=== PATIENT | male | born 1970 | race Caucasian/White ===

== ENCOUNTER 2024-05-20 09:57 | Emergency (ER) | payer MEDICAID ==
[~2024-05-20] VITALS: Ht 175.3 cm; Wt 75.0 kg
[2024-05-20 09:59] VITALS: TEMP 98.3
[2024-05-20 11:03] LABS: COLLECTION METHOD CLEAN CATCH
[2024-05-20 11:13] LABS: HEMOGLOBIN 15.4 g/dl (13.5-18.0); MEAN CELL VOLUME 96 fl (80.0-100.0); MEAN CORPUSCULAR HEMOGLOBIN 34 pg (27-31); MEAN CORPUSCULAR HGB CONC 35 g/dl (33.0-37.0); MEAN PLATELET VOLUME 10.1 fl (7.4-10.4); PLATELET COUNT 225 K/mm3 (130-400); RED BLOOD COUNT 4.59 M/mm3 (4.20-5.60); REDCELL DISTRIBUTION WIDTH-CV 15.4 % (11.5-14.5)
[2024-05-20 11:15] LABS: PH 5.5 (5.0-8.5); URINE APPEARANCE CLEAR (CLEAR/HAZY); URINE BLOOD NEGATIVE (NEGATIVE); URINE COLOR YELLOW (YELLOW); URINE GLUCOSE NEGATIVE (NEGATIVE); URINE KETONE NEGATIVE (NEGATIVE); URINE NITRATE NEGATIVE (NEGATIVE); URINE PROTEIN(semi-quant) NEGATIVE (NEGATIVE)
[2024-05-20 11:34] LABS: ALANINE AMINOTRANSFERASE 162 U/L (0-55); ALBUMIN 3.8 g/dL (3.5-5.0); ALKALINE PHOSPHATASE 86 U/L (40-150); ANION GAP 15 mmol/L (7-16); AST,SGOT 233 U/L (5-34); BILIRUBIN,TOTAL 0.7 mg/dL (0.2-1.2); BLOOD UREA NITROGEN 6 mg/dL (8-26); CALCIUM 8.9 mg/dL (8.4-10.2); CHLORIDE 108 mEq/L (98-107); CREATININE, serum 0.67 mg/dL (0.72-1.25); GLUCOSE 108 mg/dL (70-99); POTASSIUM 3.8 mEq/L (3.5-4.5); SODIUM 143 mEq/L (136-145); TOTAL PROTEIN 7.8 g/dl (6.2-8.1)
[2024-05-20 11:39] LABS: ALCOHOL(ethanol),MEDICAL 325 mg/dL (0-10)
[2024-05-20 11:41] LABS: TROPONIN-I < 0.010 ng/mL (0.00-0.033)
[2024-05-20 15:32] VITALS: BP 113/79; PULSE 77
--- NOTE | 2024-05-20 16:01 | NUR ---
foot worker was consulted to speak with a patient in the emergency room whom is homeless and intoxicated. SW was notified patient is ready for discharge from the ER. KATHY contacted [facility] whom expressed they have availability at their fpc but patient would need to be sober to be able to stay at the fpc. KATHY and KATHY Student met with patient to discuss this. Patient stated "I want to go to the fpc." SW explained to patient that he will need to be sober. Patient stated he has been here in the ER since last night and he was sober. SW explained to patient that he arrived at 10 AM today. Patient asked what time it was, licensed social worker expressed it was 2:30 pm. Patient stated that since he wasn't sober he wouldn't be able to go to the emergency fpc. SW explained the emergency fpc has their own policies and that is one of their rules. Patient stated he wanted to go to the fpc. SW explained they would need to do a consult, patient stated okay. KATHY contacted [facility] and placed her on speaker phone for patient to speak with them. During the consult, patient stated he has been homeless for 30 years and has been staying in between [facility] and [facility]. Patient stated that a video system repairer brought him to the hospital here. When asked where patient was staying last night, patient stated he was staying on the street under an umbrella last night because it was raining. Patient stated he has no one here to stay with. When discussing mental health disorders, patient reported he has schizoaffective disorder. The outside medical sales representative stated patient would have a bed available there and they would hold it for 24 hours but she stated it sounds as though the patient is intoxicated. Patient stated "I have no teeth, that is why I sound like this." The outside medical sales representative at the fpc stated she understood but he will have to blow a breathlizer and it would need show zero. Patient then stated "I have a bit of a buzz," the outside medical sales representative stated he would not be allowed to stay the evening. Patient asked if he could remain in the hospital until he sobered up. KATHY explained that would be the physician's decision but if he was medically cleared, he would be discharged. KATHY provided patient with the information on the [facility] shelters, [facility] Resource Guide, AA meetings, Drug and Alcohol Resources, [facility] and mental health resources in the area. KATHY notified the emergency fpc outside medical sales representative that patient would transfer via UBER to the fpc but if he was not sober upon arrival, she provided him resources for the cooling shelters for the remainder of the evening. Slot Machine Key Person stated she understood and would be looking for him. Upon leaving patient's room, patient looked at KATHY Mena and KATHY and flipped his hair over, pointed to the back of his neck and stated "BUGS!" Patient then stated he also has bugs "here" and pointed to his groin area. KATHY and KATHY Student met with patient's nurse and doctor and explained what the emergency fpc stated about him being sober to get admitted there. SW explained she can transport him there and if he is not sober upon arrival she has provided him with the information to [facility] and the other cooling shelters which the emergency fpc could also assist him with locating those areas if he is not familiar with the area. SW was notified patient is medically ready for discharge. KATHY and KATHY Student provided patient with a new set of clothing including new shirt, shorts, underwear and socks. Patient looked at licensed social worker and stated "Isopropyl Alcohol!" foot worker asked what he was meaning, patient again stated "Isopropyl Alcohol!" SW asked again what he meant by this. Patient stated it is rubbing alcohol for his bugs. SW explained she does not have rubbing alcohol for his bugs but he could request this from his nurse whom was standing near him getting his vitals. Patient stated "you cannot request it?" SW stated she was unable to give him rubbing alcohol that his nurse could assist with that while he was in the ER. Patient stated "So you don't care if I get eaten by bugs?" SW explained she cared but that it was a request she was unable to assist with as she does not have rubbing alcohol and she would be unable to provide this to him. KATHY explained to patient's nurse to notify her when he was dressed and ready for UBER transportation. KATHY was notified patient was ready for transportation. KATHY scheduled the UBER ride and notified patient's nurse of UBER timeframe. KATHY made APS report: Intake ID [id number]
--- NOTE | 2024-05-25 15:13 | NUR ---
computer recycling worker was informed by KATHY Sands that APS has called to report that they did not receive the full intake on pt, "only a sentence." KATHY called APS Hakeem to gather who called and she did not answer. KATHY left a message to APS Information Security Manager Maria to provide any assistance. KATHY called D[facility] intake line to see if they could pull up this report using intake number. Nuclear Pharmacist reports, "Since you are not the resource efficiency manager, I cannot provide any information." She suggested this SW make a new report then she can assist. KATHY attempted to inform her the intake line called the social work team and asked if they could check their records. She declined this.
== END 2024-05-20 15:32 | disposition home or self-care (01) ==
LOC: COL.ER 09:57
PROVIDERS: Family Medicine
DX: F10.129 Alcohol abuse with intoxication, unspecified (principal); Z59.00 Homelessness unspecified; Z87.19 Personal history of other diseases of the digestive system; Y90.8 Blood alcohol level of 240 mg/100 ml or more

== ENCOUNTER 2024-05-20 20:00 | Emergency (ER) | payer MEDICAID ==
[~2024-05-20] VITALS: Ht 175.3 cm; Wt 75.0 kg
[2024-05-20 20:01] VITALS: TEMP 98
[2024-05-20] MEDS ORDERED: NS 1,000 ML IV ONE (20:15)
[2024-05-20 20:34] LABS: BASO # 0.1 K/mm3 (0.0-0.2); EOS # 0.2 K/mm3 (0.0-0.7); EOS % 2.9 % (0.0-4.0); GRAN # 1.8 K/mm3 (1.4-6.5); GRAN % 30.7 % (42.2-75.2); HEMATOCRIT 41.3 % (42.0-52.0); HEMOGLOBIN 14.2 g/dl (13.5-18.0); LYMPH # 3.2 K/mm3 (1.2-3.4); LYMPH % 53.9 % (20.0-51.0); MEAN CELL VOLUME 98 fl (80.0-100.0); MEAN CORPUSCULAR HEMOGLOBIN 34 pg (27-31); MEAN CORPUSCULAR HGB CONC 34 g/dl (33.0-37.0); MEAN PLATELET VOLUME 10.4 fl (7.4-10.4); MONO # 0.6 K/mm3 (0.1-0.6); MONO % 10.8 % (1.7-9.3); PLATELET COUNT 212 K/mm3 (130-400); RED BLOOD COUNT 4.22 M/mm3 (4.20-5.60); REDCELL DISTRIBUTION WIDTH-CV 15.6 % (11.5-14.5)
[2024-05-20 21:01] LABS: ALBUMIN 3.6 g/dL (3.5-5.0); BILIRUBIN,TOTAL 0.5 mg/dL (0.2-1.2); CREATININE, serum 0.67 mg/dL (0.72-1.25); MAGNESIUM 1.4 mg/dL (1.6-2.6); POTASSIUM 3.3 mEq/L (3.5-4.5); TOTAL PROTEIN 7.2 g/dl (6.2-8.1)
[2024-05-20] MEDS ORDERED: Magnesium Oxide 400 MG TAB PO ONE (21:30)
[2024-05-20 22:31] LABS: TRICYCLIC ANTIDEPRESS URINE NEGATIVE (NEGATIVE)
[2024-05-20 23:15] VITALS: BP 111/74; PULSE 86
[2024-05-20] MEDS ORDERED: buPROPion SR (12-HR) 150 MG TAB PO ONE (23:30)
== END 2024-05-20 23:45 | disposition home or self-care (01) ==
LOC: COL.ER 20:00
PROVIDERS: Emergency Medicine
DX: F10.229 Alcohol dependence with intoxication, unspecified (principal); E87.6 Hypokalemia; E83.42 Hypomagnesemia; Y90.8 Blood alcohol level of 240 mg/100 ml or more
CPT/HCPCS: J7030

== ENCOUNTER 2024-05-21 20:34 | Emergency (ER) | payer MEDICAID ==
[~2024-05-21] VITALS: Ht 175.3 cm; Wt 75.0 kg
[2024-05-21 20:46] VITALS: BP 122/77; TEMP 98.3
[2024-05-21 21:13] VITALS: PULSE 97
[2024-05-22] MEDS ORDERED: EUTHYROX150 MCG PO (23:46)
[2024-05-22] MEDS ORDERED: WELLBUTRIN SR150 M1 PO ×2 (23:47)
== END 2024-05-21 21:13 | disposition home or self-care (01) ==
LOC: COL.ER 20:34
DX: F10.129 Alcohol abuse with intoxication, unspecified (principal)

== ENCOUNTER 2024-05-22 10:14 | Emergency (ER) | payer MEDICAID ==
[~2024-05-22] VITALS: Ht 175.3 cm; Wt 75.0 kg
[2024-05-22 11:16] VITALS: TEMP 98.1
[2024-05-22] MEDS ORDERED: PERMETHRIN 1% TP ONE (11:30)
[2024-05-22 12:29] LABS: COLLECTION METHOD CLEAN CATCH
[2024-05-22 12:30] LABS: HEMATOCRIT 39.6 % (42.0-52.0); HEMOGLOBIN 13.8 g/dl (13.5-18.0); MEAN CELL VOLUME 97 fl (80.0-100.0); MEAN CORPUSCULAR HEMOGLOBIN 34 pg (27-31); MEAN CORPUSCULAR HGB CONC 35 g/dl (33.0-37.0); MEAN PLATELET VOLUME 10.5 fl (7.4-10.4); PLATELET COUNT 195 K/mm3 (130-400); RED BLOOD COUNT 4.09 M/mm3 (4.20-5.60); REDCELL DISTRIBUTION WIDTH-CV 15.3 % (11.5-14.5)
[2024-05-22 12:31] LABS: ALANINE AMINOTRANSFERASE 110 U/L (0-55); ALBUMIN 3.5 g/dL (3.5-5.0); ALKALINE PHOSPHATASE 80 U/L (40-150); ANION GAP 11 mmol/L (7-16); AST,SGOT 157 U/L (5-34); BILIRUBIN,TOTAL 0.8 mg/dL (0.2-1.2); BLOOD UREA NITROGEN 10 mg/dL (8-26); CALCIUM 8.7 mg/dL (8.4-10.2); CHLORIDE 103 mEq/L (98-107); CREATININE, serum 0.61 mg/dL (0.72-1.25); GLUCOSE 95 mg/dL (70-99); POTASSIUM 3.5 mEq/L (3.5-4.5); SODIUM 138 mEq/L (136-145); TOTAL PROTEIN 6.9 g/dl (6.2-8.1)
[2024-05-22 12:36] LABS: ALCOHOL(ethanol),MEDICAL < 10 mg/dL (0-10); SALICYLATE < 5.0 mg/dL (15.0-30.0)
[2024-05-22 12:41] LABS: URINE APPEARANCE Clear (CLEAR/HAZY); URINE BLOOD Negative (NEGATIVE); URINE COLOR Yellow (YELLOW); URINE GLUCOSE Negative (NEGATIVE); URINE KETONE Negative (NEGATIVE); URINE NITRATE Negative (NEGATIVE); URINE PROTEIN(semi-quant) Negative (NEGATIVE)
[2024-05-22 12:52] LABS: TRICYCLIC ANTIDEPRESS URINE NEGATIVE (NEGATIVE)
[2024-05-22 17:17] VITALS: BP 127/76; PULSE 79
[2024-05-22] MEDS ORDERED: Lidocaine 4% Topical Patch TP ONE (18:45)
[2024-05-22] MEDS ORDERED: Nicotine 21 MG DAILY PATCH TD ONE (18:45)
[2024-05-22] MEDS ORDERED: EUTHYROX150 MCG PO (23:46)
[2024-05-22] MEDS ORDERED: WELLBUTRIN SR150 M1 PO ×2 (23:47)
[2024-05-23] MEDS ORDERED: buPROPion SR (12-HR) 150 MG TAB PO SCH ×2 (00:09→09:00)
[2024-05-23] MEDS ORDERED: Nicotine 14 MG DAILY PATCH TD ONE (10:15)
== END 2024-05-23 10:53 | disposition home or self-care (01) ==
LOC: COL.ER 10:14
PROVIDERS: Family Medicine
DX: R45.851 Suicidal ideations (principal)

== ENCOUNTER 2024-05-30 20:01 | Emergency (ER) | payer MEDICAID ==
[~2024-05-30] VITALS: Ht 175.3 cm; Wt 80.9 kg
[~2024-05-30 20:01] MED LIST: EUTHYROX150 MCG PO; WELLBUTRIN SR150 M1 PO
[2024-05-30 20:55] LABS: HEMATOCRIT 40.9 % (42.0-52.0); HEMOGLOBIN 13.8 g/dl (13.5-18.0); MEAN CELL VOLUME 100 fl (80.0-100.0); MEAN CORPUSCULAR HEMOGLOBIN 34 pg (27-31); MEAN CORPUSCULAR HGB CONC 34 g/dl (33.0-37.0); PLATELET COUNT 182 K/mm3 (130-400); RED BLOOD COUNT 4.08 M/mm3 (4.20-5.60); REDCELL DISTRIBUTION WIDTH-CV 16.3 % (11.5-14.5)
[2024-05-30 21:11] LABS: ALANINE AMINOTRANSFERASE 196 U/L (0-55); ALBUMIN 3.5 g/dL (3.5-5.0); ALKALINE PHOSPHATASE 67 U/L (40-150); ANION GAP 15 mmol/L (7-16); AST,SGOT 262 U/L (5-34); BILIRUBIN,TOTAL 0.4 mg/dL (0.2-1.2); BLOOD UREA NITROGEN 8 mg/dL (8-26); CALCIUM 8.4 mg/dL (8.4-10.2); CHLORIDE 113 mEq/L (98-107); CREATININE, serum 0.67 mg/dL (0.72-1.25); GLUCOSE 84 mg/dL (70-99); POTASSIUM 3.1 mEq/L (3.5-4.5); SODIUM 150 mEq/L (136-145); TOTAL PROTEIN 6.8 g/dl (6.2-8.1)
[2024-05-30 21:15] LABS: ALCOHOL(ethanol),MEDICAL 349 mg/dL (0-10); SALICYLATE < 5.0 mg/dL (15.0-30.0)
[2024-05-30 21:28] LABS: TROPONIN-I < 0.010 ng/mL (0.00-0.033)
[2024-05-30 21:37] LABS: ANISOCYTOSIS 1+; BAND 3 % (0-10); EOSINOPHIL 2 % (0-4); LYMPHOCYTE 53 % (20.0-51.0); METAMYELOCYTE 1 % (0-0); NEUTROPHILS 30 % (42.0-75.2); PLATELET ESTIMATE NORMAL (NORMAL)
[2024-05-30 21:38] LABS: TARGET CELLS 1+
[2024-05-31 01:27] LABS: COLLECTION METHOD CLEAN CATCH
[2024-05-31 01:36] LABS: URINE APPEARANCE Clear (CLEAR/HAZY); URINE BLOOD Negative (NEGATIVE); URINE COLOR Yellow (YELLOW); URINE GLUCOSE Negative (NEGATIVE); URINE KETONE Negative (NEGATIVE); URINE NITRATE Negative (NEGATIVE); URINE PROTEIN(semi-quant) Negative (NEGATIVE); URINE UROBILINOGEN 0.2 E.U/dL (0.2-1.0)
[2024-05-31 01:41] LABS: TRICYCLIC ANTIDEPRESS URINE NEGATIVE (NEGATIVE)
[2024-05-31 05:43] VITALS: TEMP 97.7
[2024-05-31 10:00] VITALS: BP 131/77; PULSE 66
--- NOTE | 2024-05-31 10:47 | NUR ---
can worker was consulted due to patient wanting to leave and states he is no longer suicidal or homicidal. SW met with patient's ER physician whom reports patient is medically ready for discharge, denies suicidal or homicidal thoughts and that patient wants to leave the hospital. ER physician reports patient needs resources in the community. SW met with patient and discussed discharge. Patient reports he does not remember speaking with the socially responsible investment adviser on the 1st. SW explained last time she was able to get him to the homeless correction but she understands he was unable to stay due to him not being sober. Patient reported he was sober now. SW provided the [facility] Resource Guide, [facility]ters, Community Resource List, Common Food Table (free meals in the community and their schedule), heating and cooling shelters, mental health resources, and discussed the [facility] Care Team. Patient is willing to sign a release for the [facility] Care team to assist him and review his information. Patient stated he needs an uber and that was staying behind [facility]. Patient explained his temporary correction is located behind the [employer] store next to [facility] by an unit. SW discussed assisting patient with transportation to the [facility] or [facility] and explained the services they can assist patient with. Patient stated he wanted to go to his temporary correction first then he would walk to the homeless correction. SW reminded patient that he cannot go to the homeless correction until he was sober, patient understood. SW discussed safety questions regarding any concerns of him harming himself or others. Patient denied any thoughts or plan of harming himself or others. SW provided patient with a new shirt and offered shorts but patient declined them. SW explained once he is ready to discharge, she will assist him with transportation to his temporary correction behind [facility]. SW explained again that she would highly recommend he go to [facility] or the [facility] today. SW highlighted this information on the resource guides. Patient signed release for the [facility] Care Team. SW discussed mental health resources in the community that could accept his insurance and would recommend he go get established with them. Patient stated he would consider getting into those agencies. SW asked if patient has a phone for the community care team to get in contact with him. Patient stated he does not. SW asked if he was needing any other assistance or any concerns, patient stated not at this time. can worker was notified the previous APS report made on this patient (INTAKE ID [id number]) was denied for investigation. KATHY updated patient's nurse and ER physician that patient does not want to go to the homeless correction or [facility] immediately from the hospital and wants to go to his temporary correction upon discharge. KATHY explained all of the resources that she has provided him. KATHY explained to notify her when he is ready to leave and she would set up the UBER. KATHY was notified patient is ready for discharge. KATHY scheduled the UBER. KATHY contacted [facility] via telephone and made an APS report regarding the ongoing concerns listed above and previous ER visits. INTAKE ID [id number] KATHY provided the release for the [facility] Team to director, Lisa Tracey.
--- NOTE | 2024-05-31 13:21 | NUR ---
nephrology social worker contacted Roxane from the [facility] and notified her that the patient had discharged and that he reported to her that he would be walking to them. Roxane confirmed patient has not shown up to their facility yet but she would look out for him and assist if he shows up.
== END 2024-05-31 10:00 | disposition home or self-care (01) ==
LOC: COL.ER 20:01
PROVIDERS: Nurse Practitioner
DX: F10.129 Alcohol abuse with intoxication, unspecified (principal); R45.851 Suicidal ideations; F17.290 Nicotine dependence, other tobacco product, uncomplicated; Z86.59 Personal history of other mental and behavioral disorders

== ENCOUNTER 2024-06-01 16:51 | Emergency (ER) | payer MEDICAID ==
[2024-06-01 16:52] VITALS: BP 123/72; PULSE 74; TEMP 98.5
[2024-06-01] MEDS ORDERED: Ibuprofen 400 MG TAB PO ONE (17:30)
== END 2024-06-01 17:59 | disposition home or self-care (01) ==
LOC: COL.ER 16:51
DX: M54.50 Low back pain, unspecified (principal); F91.1 Conduct disorder, childhood-onset type

== ENCOUNTER 2024-06-06 22:43 | Emergency (ER) | payer MEDICAID ==
[~2024-06-06] VITALS: Ht 170.2 cm; Wt 68.2 kg
[2024-06-06 23:46] LABS: COLLECTION METHOD CLEAN CATCH
[2024-06-07 00:07] LABS: TRICYCLIC ANTIDEPRESS URINE NEGATIVE (NEGATIVE)
[2024-06-07 00:22] LABS: ALANINE AMINOTRANSFERASE 237 U/L (0-55); ALCOHOL(ethanol),MEDICAL 293 mg/dL (0-10); ALKALINE PHOSPHATASE 78 U/L (40-150); ANION GAP 18 mmol/L (7-16); AST,SGOT 339 U/L (5-34); BILIRUBIN,TOTAL 0.7 mg/dL (0.2-1.2); BLOOD UREA NITROGEN 9 mg/dL (8-26); CALCIUM 9.4 mg/dL (8.4-10.2); CHLORIDE 107 mEq/L (98-107); CREATININE, serum 0.73 mg/dL (0.72-1.25); GLUCOSE 89 mg/dL (70-99); POTASSIUM 3.5 mEq/L (3.5-4.5); SALICYLATE < 5.0 mg/dL (15.0-30.0); SODIUM 147 mEq/L (136-145); TOTAL PROTEIN 7.8 g/dl (6.2-8.1)
[2024-06-07 00:29] LABS: URINE APPEARANCE CLEAR (CLEAR/HAZY); URINE BLOOD NEGATIVE (NEGATIVE); URINE COLOR YELLOW (YELLOW); URINE GLUCOSE NEGATIVE (NEGATIVE); URINE KETONE NEGATIVE (NEGATIVE); URINE NITRATE NEGATIVE (NEGATIVE); URINE PROTEIN(semi-quant) NEGATIVE (NEGATIVE)
[2024-06-07 00:32] LABS: ACETONE,SERUM NEGATIVE
[2024-06-07 00:41] LABS: TSH w REFLEX 6.018 uIU/mL (0.350-4.940)
[2024-06-07 01:10] LABS: BASO # 0.1 K/mm3 (0.0-0.2); EOS # 0.1 K/mm3 (0.0-0.7); EOS % 1.9 % (0.0-4.0); GRAN # 1.6 K/mm3 (1.4-6.5); GRAN % 21.3 % (42.2-75.2); HEMATOCRIT 46.9 % (42.0-52.0); HEMOGLOBIN 15.9 g/dl (13.5-18.0); LYMPH # 4.7 K/mm3 (1.2-3.4); LYMPH % 64.8 % (20.0-51.0); MEAN CELL VOLUME 100 fl (80.0-100.0); MEAN CORPUSCULAR HEMOGLOBIN 34 pg (27-31); MEAN CORPUSCULAR HGB CONC 34 g/dl (33.0-37.0); MEAN PLATELET VOLUME 11.6 fl (7.4-10.4); MONO # 0.8 K/mm3 (0.1-0.6); MONO % 10.7 % (1.7-9.3); PLATELET COUNT 138 K/mm3 (130-400); RED BLOOD COUNT 4.67 M/mm3 (4.20-5.60); REDCELL DISTRIBUTION WIDTH-CV 15.5 % (11.5-14.5)
[2024-06-07] MEDS ORDERED: Nicotine 21 MG DAILY PATCH TD SCH (13:58)
[2024-06-08] MEDS ORDERED: buPROPion SR (12-HR) 150 MG TAB PO SCH ×2 (13:00→21:00)
[2024-06-08] MEDS ORDERED: buPROPion XL (24-HR) 150 MG TAB PO SCH (21:00)
[2024-06-09] MEDS ORDERED: buPROPion SR (12-HR) 150 MG TAB PO SCH (07:00)
[2024-06-10 10:08] VITALS: TEMP 97.8
[2024-06-10 17:10] VITALS: BP 140/98; PULSE 84
== END 2024-06-10 18:24 | disposition home or self-care (01) ==
LOC: COL.ER 22:43
PROVIDERS: Emergency Medicine
DX: R45.851 Suicidal ideations (principal)

== ENCOUNTER 2024-06-28 16:36 | Emergency (ER) | payer MEDICAID ==
[~2024-06-28] VITALS: Ht 175.3 cm; Wt 77.3 kg
[2024-06-28 16:41] VITALS: TEMP 98.3
[2024-06-28 18:07] VITALS: BP 110/74
[2024-06-28 18:28] LABS: COLLECTION METHOD CLEAN CATCH
[2024-06-28 18:37] LABS: PH 6.5 (5.0-8.5); URINE APPEARANCE CLEAR (CLEAR/HAZY); URINE BLOOD NEGATIVE (NEGATIVE); URINE COLOR YELLOW (YELLOW); URINE GLUCOSE NEGATIVE (NEGATIVE); URINE KETONE NEGATIVE (NEGATIVE); URINE NITRATE NEGATIVE (NEGATIVE); URINE PROTEIN(semi-quant) NEGATIVE (NEGATIVE)
[2024-06-28 18:43] LABS: TRICYCLIC ANTIDEPRESS URINE NEGATIVE (NEGATIVE)
[2024-06-28 18:52] LABS: HEMATOCRIT 43.4 % (42.0-52.0); HEMOGLOBIN 15.1 g/dl (13.5-18.0); MEAN CELL VOLUME 98 fl (80.0-100.0); MEAN CORPUSCULAR HEMOGLOBIN 34 pg (27-31); MEAN CORPUSCULAR HGB CONC 35 g/dl (33.0-37.0); MEAN PLATELET VOLUME 9.8 fl (7.4-10.4); PLATELET COUNT 245 K/mm3 (130-400); RED BLOOD COUNT 4.41 M/mm3 (4.20-5.60); REDCELL DISTRIBUTION WIDTH-CV 14.2 % (11.5-14.5)
[2024-06-28 19:12] LABS: ALANINE AMINOTRANSFERASE 194 U/L (0-55); ALBUMIN 3.6 g/dL (3.5-5.0); ALKALINE PHOSPHATASE 58 U/L (40-150); ANION GAP 12 mmol/L (7-16); AST,SGOT 185 U/L (5-34); BILIRUBIN,TOTAL 0.5 mg/dL (0.2-1.2); BLOOD UREA NITROGEN 11 mg/dL (8-26); CALCIUM 8.7 mg/dL (8.4-10.2); CHLORIDE 111 mEq/L (98-107); CREATININE, serum 0.77 mg/dL (0.72-1.25); GLUCOSE 90 mg/dL (70-99); POTASSIUM 3.4 mEq/L (3.5-4.5); SODIUM 148 mEq/L (136-145); TOTAL PROTEIN 6.7 g/dl (6.2-8.1)
[2024-06-28 19:14] LABS: ALCOHOL(ethanol),MEDICAL 304 mg/dL (0-10)
[2024-06-28 19:29] LABS: SALICYLATE < 5.0 mg/dL (15.0-30.0)
[2024-06-28 19:33] LABS: OSMOLALITY-SERUM 388 Osm/kg (275-300)
[2024-06-28 19:44] LABS: LYMPHOCYTE 78 % (20.0-51.0); METAMYELOCYTE 1 % (0-0); NEUTROPHILS 20 % (42.0-75.2)
[2024-06-28 20:45] VITALS: PULSE 92
== END 2024-06-28 22:10 | disposition home or self-care (01) ==
LOC: COL.ER 16:36
PROVIDERS: Emergency Medicine
DX: F10.129 Alcohol abuse with intoxication, unspecified (principal); Y90.8 Blood alcohol level of 240 mg/100 ml or more

== ENCOUNTER 2024-06-29 18:14 | Emergency (ER) | payer MEDICAID ==
[~2024-06-29] VITALS: Ht 175.3 cm; Wt 78.2 kg
[2024-06-29 18:16] VITALS: TEMP 98.1
[2024-06-29 18:32] VITALS: BP 100/83; PULSE 89
== END 2024-06-29 18:32 | disposition home or self-care (01) ==
LOC: COL.ER 18:14
DX: F10.90 Alcohol use, unspecified, uncomplicated (principal); F17.200 Nicotine dependence, unspecified, uncomplicated

== ENCOUNTER 2024-06-30 23:25 | Emergency (ER) | payer MEDICAID ==
[~2024-06-30] VITALS: Ht 152.4 cm; Wt 65.9 kg
[2024-06-30 23:30] VITALS: TEMP 97.1
[2024-06-30] MEDS ORDERED: Folic Acid 1 MG,Thiamine 200 MG in NS 1,000 ML IV ONE (23:45)
[2024-06-30] MEDS ORDERED: MULTIVITAMINS IV ONE (23:45)
[2024-06-30] MEDS ORDERED: NS 1,000 ML IV ONE (23:45)
[2024-06-30] MEDS ORDERED: NS IV ONE (23:45)
[2024-07-01 00:22] LABS: HEMATOCRIT 43.6 % (42.0-52.0); HEMOGLOBIN 15.1 g/dl (13.5-18.0); MEAN CELL VOLUME 97 fl (80.0-100.0); MEAN CORPUSCULAR HEMOGLOBIN 34 pg (27-31); MEAN CORPUSCULAR HGB CONC 35 g/dl (33.0-37.0); MEAN PLATELET VOLUME 10.4 fl (7.4-10.4); PLATELET COUNT 227 K/mm3 (130-400); RED BLOOD COUNT 4.49 M/mm3 (4.20-5.60)
[2024-07-01 00:33] LABS: ALBUMIN 3.7 g/dL (3.5-5.0); BILIRUBIN,TOTAL 0.7 mg/dL (0.2-1.2); CALCIUM 8.7 mg/dL (8.4-10.2); CREATININE, serum 0.73 mg/dL (0.72-1.25); POTASSIUM 3.6 mEq/L (3.5-4.5); TOTAL PROTEIN 7.3 g/dl (6.2-8.1)
[2024-07-01 00:43] LABS: EOSINOPHIL 2 % (0-4); LYMPHOCYTE 69 % (20.0-51.0); NEUTROPHILS 24 % (42.0-75.2); TARGET CELLS 1+
[2024-07-01 00:44] LABS: PLATELET ESTIMATE NORMAL (NORMAL)
[2024-07-01 00:47] LABS: HOWELL-JOLLY BODIES 1+
[2024-07-01 02:39] VITALS: BP 150/80; PULSE 60
== END 2024-07-01 05:29 | disposition home or self-care (01) ==
LOC: COL.ER 23:25
PROVIDERS: Emergency Medicine
DX: F10.10 Alcohol abuse, uncomplicated (principal); Y90.8 Blood alcohol level of 240 mg/100 ml or more
CPT/HCPCS: J3411; J7030

== ENCOUNTER 2024-07-10 21:23 | Emergency (ER) | payer MEDICAID ==
[~2024-07-10] VITALS: Ht 175.3 cm; Wt 72.7 kg
[2024-07-10 21:26] VITALS: BP 130/87; PULSE 67; TEMP 97.8
== END 2024-07-10 22:25 | disposition home or self-care (01) ==
LOC: COL.ER 21:23
DX: M25.531 Pain in right wrist (principal)